=== PATIENT | female | born 1980 | race Caucasian/White ===

== ENCOUNTER 2023-12-19 14:34 | Emergency (ER) | payer OTHER ==
[~2023-12-19] VITALS: Ht 152.4 cm; Wt 53.1 kg
[2023-12-19 15:16] VITALS: BP_SYST 98; PULSE 92; RESP 18; TEMP 96.9; O2SAT 100
[2023-12-19] MEDS: METOCLOPRAMIDE HCL 10 MG/2 ML VIAL IM ONE (16:03)
[2023-12-19] MEDS: CYCLOBENZAPRINE HCL 10 MG TABLET (FLEXERIL) PO ONE (16:03)
[2023-12-19] MEDS: LIDOCAINE PATCH 5% 1 EA TP ONE (16:03)
[2023-12-19] MEDS ORDERED: LIDO1ADH22 TP (17:51)
[2023-12-19 18:01] VITALS: BP_SYST 100; PULSE 68; RESP 18; TEMP 98.6; O2SAT 96
== END 2023-12-19 18:01 | disposition home or self-care (01) ==
LOC: SED 14:34
DX: S06.0X0A Concussion without loss of consciousness, initial encounter (principal); M54.2 Cervicalgia; N20.0 Calculus of kidney; V43.62XA Car passenger injured in collision with other type car in traffic accident, initial encounter; Y93.89 Activity, other specified; Y92.410 Unspecified street and highway as the place of occurrence of the external cause; Y99.8 Other external cause status
CPT/HCPCS: 70450-TC; 72125-TC; 72128; 81025; 99284; J2765